=== PATIENT | male | born 2000 | race Caucasian/White ===

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

== ENCOUNTER 2022-09-04 09:12 | Emergency (ER) | payer OTHER ==
[2022-09-04 09:45] VITALS: O2SAT 98
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
[2022-09-04 10:28] LABS: Absolute Neutrophil Ct (ANC) 7.68 x10^3/uL (1.4-6.9); Basophil (Absolute #) 0.03 x10^3/uL (0-0.4); Eosinophil % 1.3 % (0.00-5.0); Eosinophil (Absolute #) 0.12 x10^3/uL (0-0.5); Hematocrit 42.1 % (42-50); Hemoglobin 14.5 g/dL (12.5-18.0); Lymphocyte (Absolute #) 0.85 x10^3/uL (1.0-4.6); Lymphocytes % 9.3 % (24.0-44.0); Mean Cell Volume 95.9 fL (78-100); Mean Corpuscular Hgb Concent. 34.4 g/dL (32-36); Mean Platelet Volume 10.2 fL (7.5-11.0); Monocytes % 4.4 % (0.0-12.0); Neutrophil % 84.2 % (36.0-66.0); Platelet Count 212 x10^3/uL (150-450); Red Blood Count 4.39 x10^6/uL (4.1-5.6); White Blood Count 9.1 x10^3/uL (4.0-10.5)
[2022-09-04 10:41] LABS: ALBUMIN 4.3 g/dL (3.5-5.0); ALKALINE PHOSPHATASE 70 U/L (38-126); AMYLASE 49 U/L (30-110); ANION GAP 12.6 MEQ/L (5-15); BLOOD UREA NITROGEN 7 mg/dL (9-20); CHLORIDE 108 mmol/L (98-107); Calcium 8.6 mg/dL (8.4-10.2); Carbon Dioxide 22 mmol/L (22-30); Creatinine 1 0.64 mg/dL (0.66-1.25); EST GLOMERULAR FILTRATION RATE > 60.0 ML/MIN; ETHYL ALCOHOL 58 mg/dL (0-10); Glucose 92 mg/dL (74-106); LIPASE 41 U/L (23-300); Potassium 3.5 mmol/L (3.5-5.1); SGOT/AST 18 U/L (17-59); SGPT/ALT 16 U/L (0-50); SODIUM 139 mmol/L (137-145); Total Protein 6.8 g/dL (6.3-8.2)
[2022-09-04 10:43] LABS: INR 1.13 (0.8-3.0); PROTIME 11.8 SECONDS (9.4-12.5); PTT 26.8 SECONDS (25.1-36.5)
[2022-09-04 10:51] LABS: Appearance CLEAR (CLEAR); Bilirubin NEGATIVE (NEGATIVE); Dipstick done @ ? MAIN LAB; Glucose NEGATIVE (NEGATIVE); Ketones NEGATIVE (NEGATIVE); Nitrite NEGATIVE (NEGATIVE); Protein,Urine Dip NEGATIVE (Negative); RBC NEGATIVE Ery/ul (0-5); Specific Gravity <=1.005 (1.005-1.025); Urobilinogen 0.2 mg/dL (0-1)
[2022-09-04 10:54] LABS: Urine Cultured Indicated? NO
[2022-09-04 11:04] VITALS: BP 114/68; PULSE 76
[2022-09-04 11:16] LABS: Amphetamine,Urine NEGATIVE (NEGATIVE); Barbiturate,Urine NEGATIVE (NEGATIVE); Benzodiazepine,Urine NEGATIVE (NEGATIVE); Cocaine,Urine NEGATIVE (NEGATIVE); Methadone,Urine NEGATIVE (NEGATIVE); Opiate,Urine NEGATIVE (NEGATIVE); PCP,Urine NEGATIVE (NEGATIVE); THC,Urine POSITIVE (NEGATIVE)
== END 2022-09-04 11:26 | disposition home or self-care (01) ==
LOC: ED 09:12
DX: S02.2XXA Fracture of nasal bones, initial encounter for closed fracture (principal); S40.012A Contusion of left shoulder, initial encounter; V58.5XXA Driver of pick-up truck or van injured in noncollision transport accident in traffic accident, initial encounter; Z28.310 Unvaccinated for COVID-19; Z72.0 Tobacco use
CPT/HCPCS: 36000; 36415; 70450; 70486; 71260; 72125; 73030; 74177; 80053; 80307; 81015; 82150; 83690; 85025; 85610; 85730; 99285; G0480

== ENCOUNTER 2024-11-24 20:37 | Emergency (ER) | payer OTHER ==
--- NOTE | 2024-11-24 21:08 | ERPHSYRPT ---
- History of Present Illness Time Seen by Provider: 11/24/24 21:08 Historian: patient, family Exam Limitations: no limitations Physician History: This is a 24-year-old white male patient of Dr. Oliver who presents to the emergency department by private vehicle accompanied by her with mother with a complaint of abdominal pain and vomiting. The abdominal pain began te roximately 1330 and it is in his lower abdomen and he describes it as squeezing with a burning component. He vomited once at 8 PM prior to arrival and it was dark in color. The abdominal pain at 8 PM was more of a burning than the squeezing. He has had no diarrhea. He denies chest pain. He denies cough. He denies shortness of breath. He has had no fevers. He has never had this constellation of symptoms before. He has had stomach issues in the past. There is a question of maybe has a history of Crohn's disease. He is not on any medications at this time Timing/Duration: today Quality: burning, other (Squeezing) Abdominal Pain Onset Location: RLQ, LLQ Pain Radiation: no radiation Severity of Pain-Max: moderate Severity of Pain-Current: mild Modifying Factors: Improves With: vomiting (X 1) Associated Symptoms: loss of appetite, nausea, vomiting (X 1) Previous symptoms: no prior history, no recent treatment Allergies/Adverse Reactions: hepatitis A virus vaccine Allergy (Severe, Verified 02/12/20 15:39) hepatitis B virus vaccine Allergy (Severe, Verified 02/12/20 15:39) Hives ceftriaxone [From Rocephin] Allergy (Verified 02/12/20 15:39) Hx Tetanus, Diphtheria Vaccination/Date Given: Yes Hx Influenza Vaccination/Date Given: No Hx Pneumococcal Vaccination/Date Given: No Travel Risk - International Travel Have you traveled outside of the country in past 3 weeks: No - Emerging Infectious Disease Are you exhibiting symptoms associated with any current EIDs: No - Review of Systems Constitutional: No Symptoms Eyes: No Symptoms Ears, Nose, & Throat: No Symptoms Respiratory: No Symptoms Cardiac: No Symptoms Abdominal/Gastrointestinal: Abdominal Pain, Nausea, Vomiting, Hematemesis (Questionable), Appetite Changes Genitourinary Symptoms: No Symptoms Musculoskeletal: No Symptoms Skin: No Symptoms Neurological: No Symptoms Psychological: No Symptoms Endocrine: No Symptoms Hematologic/Lymphatic: No Symptoms Immunological/Allergic: No Symptoms All Other Systems: Reviewed and Negative - Past Medical History Pertinent Past Medical History: Yes Neurological History: No Pertinent History ENT History: No Pertinent History Cardiac History: No Pertinent History Respiratory History: No Pertinent History Endocrine Medical History: No Pertinent History Musculoskeletal History: No Pertinent History GI Medical History: No Pertinent History, Hernia History: No Pertinent History Psycho-Social History: No Pertinent History Male Reproductive Disorders: No Pertinent History Other Medical History: umbilical hernia, Tonsillectomy, alpha 1 - Past Surgical History Past Surgical History: Yes Neuro Surgical History: No Pertinent History Cardiac: No Pertinent History Respiratory: No Pertinent History Gastrointestinal: Hernia Repair Genitourinary: No Pertinent History Musculoskeletal: No Pertinent History Male Surgical History: No Pertinent History Other Surgical History: umbilical hernior. , tonsillectomy - Social History Smoking Status: Current every day smoker Exposure to second hand smoke: Yes Drug Use: marijuana Patient Lives Alone: No - Nursing Vital Signs Nursing Vital Signs: Initial Vital Signs Temperature 99.5 F 11/24/24 20:56 Pulse Rate 71 11/24/24 20:56 Respiratory Rate 18 11/24/24 20:56 Blood Pressure 120/66 11/24/24 20:56 O2 Sat by Pulse Oximetry 100 11/24/24 20:56 Pain Scale Pain Intensity 8 - Physical Exam General Appearance: no apparent distress, alert, anxiety Eye Exam: PERRL/EOMI, eyes nml inspection Ears, Nose, Throat Exam: normal ENT inspection, moist mucous membranes Neck Exam: normal inspection, non-tender, supple, full range of motion Respiratory Exam: normal breath sounds, lungs clear, respiratory distress, airway intact, No chest tenderness Cardiovascular Exam: regular rate/rhythm, normal heart sounds, normal peripheral pulses Gastrointestinal/Abdomen Exam: soft, normal bowel sounds, tenderness (Mild bilateral lower quadrant tenderness), rebound Rectal Exam: not done Back Exam: normal inspection, normal range of motion, No vertebral tenderness Extremity Exam: normal inspection, normal range of motion, pelvis stable Neurologic Exam: alert, oriented x 3, cooperative, baller tender II-XII nml as tested, normal mood/affect, nml cerebellar function, nml station & gait, sensation nml Skin Exam: normal color, warm, dry Lymphatic Exam: No adenopathy SpO2 Interpretation: normal O2 Delivery: Room Air - Course Nursing assessment & vital signs reviewed: Yes Ordered Tests: Active Orders 24 hr Category Date Time Status IV Insertion STAT Care 11/24/24 21:35 Active ABDOMEN AND PELVIS W/0 CONTRAS [CT] Stat Exams 11/24/24 21:35 Taken AMYLASE Stat Lab 11/24/24 22:08 Completed CBC W DIFF Stat Lab 11/24/24 22:08 Completed CMP Stat Lab 11/24/24 22:08 Completed UA W/RFX UR CULTURE Stat Lab 11/24/24 22:50 Completed Medication Summary Discontinued Medications Generic Name Dose Route Start Last Admin Trade Name Celena PRN Reason Stop Dose Admin Methylprednisolone Sodium 0 mg 11/24/24 23:17 Succinate 125 mg/ Sterile IV 11/24/24 23:18 Water 2 ml STAT ONE Sodium Chloride 1,000 mls @ 999 mls/hr 11/24/24 21:35 11/24/24 21:50 Sodium Chloride 0.9% 1000 Ml IV 11/24/24 22:35 999 mls/hr .Q1H1M STA Administration Sodium Chloride Confirm 11/24/24 21:49 Sodium Chloride 0.9% 1000 Ml Administered 11/24/24 21:50 Dose 1,000 mls @ ud .ROUTE .STK-MED ONE Metronidazole 500 mg 11/24/24 23:15 Metronidazole 500 Mg Tablet PO 11/24/24 23:16 STAT ONE Morphine Sulfate 4 mg 11/24/24 21:35 11/24/24 22:28 Morphine Sulfate 4 Mg/Ml Injection IV 11/24/24 21:36 4 mg STAT ONE Administration Morphine Sulfate Confirm 11/24/24 21:49 Morphine Sulfate 4 Mg/Ml Injection Administered 11/24/24 21:50 Dose 4 mg .ROUTE .STK-MED ONE Ondansetron HCl 4 mg 11/24/24 22:06 11/24/24 22:27 Ondansetron Hcl 4 Mg/2 Ml Vial IV 11/24/24 22:07 4 mg STAT ONE Administration Ondansetron HCl Confirm 11/24/24 22:22 Ondansetron Hcl 4 Mg/2 Ml Vial Administered 11/24/24 22:23 Dose 4 mg .ROUTE .STK-MED ONE Pantoprazole Sodium 40 mg 11/24/24 21:35 11/24/24 21:51 Pantoprazole 40 Mg Vial IV 11/24/24 21:36 40 mg STAT ONE Administration Pantoprazole Sodium Confirm 11/24/24 21:49 Pantoprazole 40 Mg Vial Administered 11/24/24 21:50 Dose 40 mg IV .TalkBin-MED ONE Lab/Rad Data: Laboratory Result Diagrams 11/24/24 22:08 11/24/24 22:08 Laboratory Results 11/24/24 11/24/24 11/24/24 Range/Units 22:50 22:08 22:08 WBC 12.0 H (4.23-9.07) x10^3/uL RBC 4.71 (4.63-6.08) x10^6/uL Hgb 16.0 (13.7-17.5) g/dL Hct 44.7 (40.1-51.0) % MCV 94.9 H (79.0-92.2) fL MCH 34.0 H (25.7-32.2) pg MCHC 35.8 (32.3-36.5) g/dL RDW 12.0 (11.6-14.4) % Plt Count 189 (163-337) x10^3/uL MPV 10.6 (9.4-12.4) fL Gran % 86.2 H (34.0-67.9) % Immature Gran % (Auto) 0.3 (0.001-0.429) % Nucleat RBC Rel Count 0.0 (0.00-0.2) % Eos # (Auto) 0.15 (0.04-0.54) x10^3/uL Immature Gran # (Auto) 0.03 (0.001-0.031) x10^3u/L Absolute Lymphs (auto) 0.76 L (1.32-3.57) x10^3/uL Absolute Monos (auto) 0.67 (0.30-0.82) x10^3/uL Absolute Nucleated RBC 0.00 (0.00-0.012) x10^3u/L Lymphocytes % 6.3 L (21.8-53.1) % Monocytes % 5.6 (5.3-12.2) % Eosinophils % 1.3 (0.8-7.0) % Basophils % 0.3 (0.2-1.2) % Absolute Granulocytes 10.34 H (1.78-5.38) x10^3/uL Basophils # 0.04 (0.01-0.08) x10^3/uL Sodium 140 (135-145) mmol/L Potassium 3.5 (3.5-5.1) mmol/L Chloride 107 (98-107) mmol/L Carbon Dioxide 20 L (22-30) mmol/L Anion Gap 16.8 H (5-15) MEQ/L BUN 7 L (9-20) mg/dL Creatinine 0.60 L (0.66-1.25) mg/dL Estimated GFR 139.1 ML/MIN Glucose 85 (74-106) mg/dL Calcium 8.8 (8.4-10.2) mg/dL Total Bilirubin 1.70 H (0.2-1.3) mg/dL AST 31 (17-59) U/L ALT 22 (0-50) U/L Alkaline Phosphatase 63 (38-126) U/L Serum Total Protein 7.3 (6.3-8.2) g/dL Albumin 4.7 (3.5-5.0) g/dL Amylase 60 (30-110) U/L Urine Color Yellow (Yellow) Urine Appearance Clear (Clear) Urine pH 7.0 (4.6-8.0) Ur Specific Felda 1.010 (1.005-1.030) Urine Protein Negative (Negative) Urine Glucose (UA) Negative (Negative) mg/dL Urine Ketones Negative (Negative) Urine Blood Negative (Negative) Urine Nitrite Negative (Negative) Urine Bilirubin Negative (Negative) Urine Urobilinogen 0.2 (0.2) mg/dL Ur Leukocyte Esterase Trace A (Negative) U Hyaline Cast (Auto) NONE SEEN (0-2) /LPF Urine Microscopic RBC 0-2 (0-5) /HPF Urine Microscopic WBC 0-2 (0-5) /HPF Ur Epithelial Cells None Seen (None Seen) /HPF Urine Bacteria None Seen (None Seen) /HPF Urine Culture Reflexed NO (NO) - Progress Progress: improved, pain not gone completely, re-examined Progress Note: 11/24/24 23:06 My medical decision making and the assignment of moderate complexity to this patient's medical issue today is based on review of the patient's past medical history, review of the patient's medication list, reviewed patient drug allergy list, history present illness and physical findings on examination. The workup in this patient includes placement of intravenous line, infusion of normal saline solution, antiemetic infusion, infusion of morphine, infusion of Pro tonix. CBC, CMP, urinalysis, amylase, lipase, CT scan of the abdomen pelvis without contrast. Differential diagnosis includes but is not limited to bowel obstruction, pancreatitis, peptic ulcer disease, gastritis, colitis 11/24/24 23:19 I interpreted the patient's laboratory data results. Based on the laboratory data results, there are no acute, emergent medical issues. The CT scan of the abdomen pelvis without contrast was interpreted by the radiologist and I reviewed the impression. The impression states compared to 09/04/2022, there is normal appendix, there is newly uniformly fluid distended small bowel loops with circumferential wall thickening favoring enteritis. Counseled pt/family regarding: lab results, diagnosis, need for follow-up, rad results Medical Desision Making - Independent Historian Additional History obtained from: Mother, Family - Diagnostic Testing Diagnostic test were ordered, analyzed, and reviewed by me: Yes Radiological Interpretation: Reviewed by me, Teleradiologist Report - Risk of complications The pt has a mod risk of morbidity or mortality based on: Need for prescription drug management - Departure Departure Disposition: Home Clinical Impression: Enteritis Condition: Stable Critical Care Time: No Referrals: ALANNAH OLIVER MD [Primary Care Provider] - Follow up/PCP as directed Additional Instructions: Drink plenty of clear liquids before advancing your diet. Avoid fatty greasy spicy foods. Call your primary care provider on 11/27/2024, to make arrangements for follow-up appointment for further evaluation management Prescriptions: Ondansetron ODT 4 MG [Zofran Odt 4 mg] 4 mg PO Q6H PRN PRN #10 tablet PRN Reason: Vomiting Prednisone 10 mg [Deltasone 10 mg] 10 mg PO TID #12 tablet Metronidazole 500 mg [Flagyl 500 MG] 500 mg PO TID #21 tablet Famotidine 20 mg [Pepcid 20 MG] 20 mg PO DAILY #10 tablet
[2024-11-24 21:09] VITALS: RESP 18; TEMP 99.5
[2024-11-24] MEDS ORDERED: Sodium Chloride 0.9% 1000 ML 1,000 ML ONE ×2 (21:49→23:57)
[2024-11-24] MEDS ORDERED: MORPHINE SULFATE 4 MG INJ ONE (21:49)
[2024-11-24] MEDS ORDERED: PROTONIX 40 MG IV IV ONE (21:49)
[2024-11-24] MEDS: Sodium Chloride 0.9% 1000 ML 1,000 ML IV STA (21:50)
[2024-11-24] MEDS: PROTONIX 40 MG IV IV ONE (21:51)
[2024-11-24] MEDS: MORPHINE SULFATE 4 MG INJ IV ONE (21:51)
[2024-11-24 22:11] LABS: Absolute Neutrophil Ct (ANC) 10.34 x10^3/uL (1.78-5.38); BASOPHIL % 0.3 % (0.2-1.2); Basophil (Absolute #) 0.04 x10^3/uL (0.01-0.08); Eosinophil % 1.3 % (0.8-7.0); Eosinophil (Absolute #) 0.15 x10^3/uL (0.04-0.54); Hematocrit 44.7 % (40.1-51.0); IMMATURE GRAN # 0.03 x10^3u/L (0.001-0.031); IMMATURE GRAN % 0.3 % (0.001-0.429); Lymphocyte (Absolute #) 0.76 x10^3/uL (1.32-3.57); Lymphocytes % 6.3 % (21.8-53.1); Mean Cell Volume 94.9 fL (79.0-92.2); Mean Corpuscular Hgb Concent. 35.8 g/dL (32.3-36.5); Mean Platelet Volume 10.6 fL (9.4-12.4); Monocyte (Absolute #) 0.67 x10^3/uL (0.30-0.82); Monocytes % 5.6 % (5.3-12.2); Neutrophil % 86.2 % (34.0-67.9); Platelet Count 189 x10^3/uL (163-337); Red Blood Count 4.71 x10^6/uL (4.63-6.08)
[2024-11-24 22:22] LABS: ALBUMIN 4.7 g/dL (3.5-5.0); ANION GAP 16.8 MEQ/L (5-15); BILIRUBIN,TOTAL 1.7 mg/dL (0.2-1.3); Calcium 8.8 mg/dL (8.4-10.2); Creatinine 1 0.6 mg/dL (0.66-1.25); EST GLOMERULAR FILTRATION RATE 139.1 ML/MIN; Potassium 3.5 mmol/L (3.5-5.1); Total Protein 7.3 g/dL (6.3-8.2)
[2024-11-24] MEDS ORDERED: Zofran 4 MG/2 ML VIAL ONE (22:22)
[2024-11-24] MEDS: Zofran 4 MG/2 ML VIAL IV ONE (22:27)
[2024-11-24 22:59] LABS: Appearance Clear (Clear); Bacteria None Seen /HPF (None Seen); Bilirubin Negative (Negative); Blood Negative (Negative); Epithelial Cells None Seen /HPF (None Seen); Glucose, Urine Negative (Negative); Hyaline Casts NONE SEEN /LPF (0-2); Ketones Negative (Negative); Leukocyte Esterase Trace (Negative); Nitrite Negative (Negative); Protein,Urine Dip Negative (Negative); RBC 0-2 /HPF (0-5); Urobilinogen 0.2 mg/dL (0.2); WBC 0-2 /HPF (0-5)
[2024-11-24] MEDS ORDERED: Flagyl 500 MG ONE (23:39)
[2024-11-24] MEDS ORDERED: Sterile H2O 10 ml IJ ONE (23:39)
[2024-11-24] MEDS ORDERED: solu-MEDROL ONE (23:39)
[2024-11-24] MEDS: Flagyl 500 MG PO ONE (23:40)
[2024-11-24] MEDS: solu-MEDROL 125 MG, Sterile H2O 10 ml 2 ML IV ONE (23:40)
[2024-11-24] MEDS ORDERED: FLAGYL 500 MG IVPB 500 MG/100 ML BAG IV ONE (23:57)
[2024-11-24] MEDS ORDERED: Inapsine 5 MG/2 ML ONE (23:57)
[2024-11-24] MEDS: FLAGYL 500 MG IVPB 500 MG/100 ML BAG IV STA (23:59)
[2024-11-24] MEDS: Inapsine 5 MG/2 ML IV ONE (23:59)
[2024-11-25] MEDS: Sodium Chloride 0.9% 1000 ML 1,000 ML IV STA
[2024-11-25] MEDS ORDERED: MORPHINE SULFATE 4 MG INJ ONE (00:40)
[2024-11-25] MEDS: MORPHINE SULFATE 4 MG INJ IV ONE (00:41)
[2024-11-25 01:13] VITALS: BP 118/65; PULSE 72; O2SAT 98
--- NOTE | 2024-11-25 08:14 | XRAY ---
Indication: Abdomen pain and vomiting. Multiple contiguous axial images obtained through the abdomen and pelvis without contrast. Comparison: September 04, 2022. Lung bases clear. Heart not enlarged. Noncontrasted stomach and bowel loops appear nonobstructed. New mild uniformly fluid distended small bowel loops throughout with mild circumferential wall thickening favoring enteritis. Normal appendix. Mild fecal debris in ascending and lesser degree transverse colon. Stable hepatic/splenic calcified granulomas. No free fluid/air. Remaining liver, gallbladder, pancreas, spleen, adrenal glands, kidneys, ureters, bladder, and aorta are unremarkable for noncontrast exam. Osseous structures intact. Impression: 1. CT findings favoring noncomplicated enteritis. 2. Remaining CT abdomen/pelvis without contrast exam is negative.
== END 2024-11-25 01:21 | disposition home or self-care (01) ==
LOC: ED 20:37
DX: K52.9 Noninfective gastroenteritis and colitis, unspecified (principal); R11.2 Nausea with vomiting, unspecified; R10.9 Unspecified abdominal pain; Z79.52 Long term (current) use of systemic steroids; Z79.899 Other long term (current) drug therapy; Z72.0 Tobacco use
CPT/HCPCS: 36415; 74176; 80053; 81001; 82150; 85025; 96361; 96365; 96374; 96375; 96376; 99284; 99285; J1790; J2270; J2405; J2919; A9270-GY